=== PATIENT | male | born 1940 | race Caucasian/White ===

== ENCOUNTER → 2019-03-08 | Outpatient (CLI) | payer OTHER ==
[~2019-03-08] VITALS: Ht 182.9 cm; Wt 88.9 kg
[~2019-03-08] MED LIST: ALEVE220 MG PO; ALPRAZOLAM 0.0.25 M1 PO; BACTRIM DS TAB1 EACH PO; IBUPROFEN 200200 M1 PO; NORCO 5-325 TA1 EACH PO; PANTETHINE PO; PREVACID15 MG PO; PROTONIX40 M1 PO; PYRIDIUM200 M2 PO; TYLENOL325 MG PO; VICODIN 5-3001 EACH PO; XANAX 0.25 MG0.25 MG PO
--- NOTE | ~2019-03-08 | P ---
[facility] [place] [address] PROCEDURE REPORT Name: CALI JONES [id number] Admission: 03/08/19 ������������������ Attend Phys: Juan Martinez Discharge: ������������������ Date of : 44 Report #: [id number] THIS REPORT FOR: //name// CC: Juan Rubin MD DATE OF SERVICE: 03/08/2019 PROCEDURE PERFORMED: Upper endoscopy with biopsies. HISTORY OF PRESENT ILLNESS: The patient is a 78-year-old male with a history of Sykes's esophagus, last upper endoscopy 2 years ago. Biopsies were actually negative for Sykes's. He is on a daily PPI therapy, began having increased symptoms of heartburn, but was also sleeping differently, now has been sleeping on a wedge, which is improved. He did have some abdominal pain for several months. Previous biopsies were negative for H. pylori as well in the past. DESCRIPTION OF PROCEDURE: The risks and benefits of the procedure were explained to the patient, those risks including but not limited to bleeding, perforation and the risk of sedation. He understood these risks and gave informed consent. Sedation was given using propofol per anesthesia. Next, using a standard Olympus upper endoscope, the scope was placed in the patient's mouth and advanced under direct vision through the esophagus, stomach and into the second portion of the duodenum. The larynx was normal in appearance. The upper and mid esophagus was normal. In the distal esophagus, a possible short segment of Sykes's was noted. Biopsies were obtained. Overall, in the stomach, there was a mild gastritis. Biopsies were obtained again to rule out H. pylori. The pylorus was normal and patent. The duodenal bulb, first and second portion were all normal. The scope was then withdrawn and the procedure terminated. The patient tolerated the procedure well. IMPRESSION: 1. Possible short segment Sykes's. 2. Mild gastritis. 3. Otherwise, normal upper endoscopy. RECOMMENDATIONS: 1. Await biopsy results. 2. Continue PPI therapy. 3. The patient has improved with sleeping on a wedge, would continue this moving forward. If he has recurrent symptoms, consider b.i.d. PPI therapy. [facility] [address] [place] [address] PROCEDURE REPORT Name: CALI JONES [place] Room #: REG [facility].#: [id number] Admission: 03/08/19 ������������������ Attend Phys: Juan Martinez Discharge: ������������������ Date of : 44 Report #: [id number] Thank you for allowing me to participate in his care. ��������������������������������������������� ���������������������������������������� By: ��������������������������������������������� [id number] Juan Montero MD /nt
--- NOTE | 2019-03-11 14:06 | PATH ---
[place] [address] PATHOLOGY RPT PROCEDURE Name: DAVE JONES Room #: REG CL M.R.#: [id number] ������������������ Admission: 03/08/19 ������������������ Date of : 44 Discharge: Report #: [id number] Path Case #: [id number] [facility] Accession Number: [id number] . 01 Material submitted: . PART A: esophagus - DISTAL ESOPHAGUS. Modifiers: distal PART B: stomach - GASTRITIS . 01 Clinical history: . None provided. . 02 Diagnosis: A. Gastroesophageal mucosa, distal esophagus history of Sykes's, endoscopic biopsy: - Focal reactive/reparative changes within the epithelium; negative for intestinal metaplasia, history of Sykes's metaplasia noted. - Negative for dysplasia or malignancy. - Focal squamous mucosa present showing mild esophagitis. . B. Gastric mucosa, gastritis, rule out H. pylori, endoscopic biopsy: - Reactive changes with a few dilated fundic glands. - Negative for intestinal metaplasia, active inflammation, or atrophy. - Negative for Helicobacter pylori (properly controlled immunohistochemical stain performed). (IUV:pit; 03/11/2019) QTP 03/11/2019 1300 Local . 02 Electronically signed: . Christine Cortez MD, Pathologist NPI- [id number] . 01 Gross description: . A. Received in formalin labeled "Dave Jones, distal esophagus" is a 0.4 x 0.2 x 0.1 cm aggregate of pack-brown mucosa fragments. The specimen is submitted in A1. . B. Received in formalin labeled "Dave Jones, gastritis" is a 1.5 x 0.5 x 0.1 cm aggregate of pack-brown mucosa fragments. The specimen is submitted in B1. ([facility] [place]; 03/09/2019) [facility] 03/09/2019 1539 Local . 02 Pathologist provided ICD-10: K22.70 . 02 CPT . 576658, 642958, C16506 Specimen Comment: A courtesy [place] [address] PATHOLOGY RPT PROCEDURE Name: DAVE JONES [place] Room #: REG CL Tanya#: [id number] ������������������ Admission: 03/08/19 ������������������ Date of : 44 Discharge: Report #: [id number] Path Case #: [id number] Specimen Comment: [phone], . Specimen Comment: Report sent to / DR MORGNA Specimen Comment: A duplicate report has been generated due to demographic updates. Performed at: [address], [place] [id number] MD Kevin Baker MD Phone: [phone] Performed at: [address] [id number] MD Christine Cortez MD Phone: [phone]
== END | disposition home or self-care (01) ==
LOC: GI 08:08
DX: R10.9 Unspecified abdominal pain (principal); K29.70 Gastritis, unspecified, without bleeding; K20.9 Esophagitis, unspecified; K31.89 Other diseases of stomach and duodenum; E78.5 Hyperlipidemia, unspecified; K21.9 Gastro-esophageal reflux disease without esophagitis; E78.00 Pure hypercholesterolemia, unspecified; Z85.46 Personal history of malignant neoplasm of prostate; Z98.890 Other specified postprocedural states; Z79.899 Other long term (current) drug therapy; Z88.0 Allergy status to penicillin
CPT/HCPCS: 62110; 62900